=== PATIENT | male | born 1950 | race Caucasian/White ===

== ENCOUNTER → 2016-10-25 | Day surgery (SDC) | payer MEDICARE, BC, OTHER ==
[~2016-10-25] MED LIST: AMBI12.5 PO; AMPH1TAB83 PO; ASPI325T PO; BENA25TA3 PO; BUPIVACAINE HCL PF 0.75% 30 ML VIAL ONE; CELE400C PO; CIAL20TA PO; CLIN1CAP6 PO; DOXA1TAB36 PO; FENO48TA PO; FURO20TA PO; LORA-474 PO; MELA1TAB18 PO; METO2.5T PO; METO25TA3 PO; MILK1CAP PO; MIRA33504 PO; NALO1TAB2 PO; OXYC-426 PO; OXYC30TA62 PO; POTA-163 PO; PRIM50TA5 PO; PROPOFOL 200 MG/20 ML AMP IV ONE; PROT40TA PO; ROSU10 PO; TEST200I13 IM; TIRO112C PO; TRIAMCINOLONE ACETONIDE 40 MG/ML VIAL I-ARTICULR ONE; VIAG100T PO; ZYRT10CA PO
--- NOTE | 2016-10-27 12:43 | M6 ---
cc: PRANAV LO M.D. DATE 10/25/2016 DATE OF 1950 PROCEDURE Fluoroscopically guided injection bilateral lumbar facet joints (bilateral L3-4, L4-5 and L5-S1 facet joints) PROCEDURE NOTE History and physical was completed and signed. Consent was signed. Procedure site was marked. Medications were listed and reconciled. Pain score was recorded. Allergies were noted. Time out was taken. Fluoroscopy time was recorded where applicable. Sedation was administered or directed by Dr. Lo. The patient was given oxygen. The patient was monitored by a registered nurse. Total procedure time was greater than 15 minutes. IV was started, blood pressure cuff, pulse oximeter and EKG were applied. The patient was placed in the prone position on a Ghassan table sedated with small amounts of propofol titrated to effect. Vital signs were monitored and remained stable throughout the procedure. The lumbar area was prepped with alcohol and 10% Betadine solution and draped with sterile drapes. Fluoroscopy was used in a Giovanni dog view to clearly visualize the bilateral lumbar facet joints at L3-4, L4-5 and L5-S1. Separate sterile 3-1/2-inch 25-gauge spinal needles were advanced into these joints under fluoroscopic guidance. There was negative aspiration for blood or any other type of fluid. At each location, the patient was given 1 mL of Marcaine 0.75% which contained 10 mg of Kenalog. Following the procedure, the patient was taken to the recovery room with stable vital signs neurologically intact. WMD ISSAC Burt/JAYNE /9:34 AM /12:30 PM
== END | disposition home or self-care (01) ==
LOC: PHSDC 07:28
PROVIDERS: ATTEND Pain Medicine Interventional Pain Medicine
DX: M54.5 Low back pain (principal)
CPT/HCPCS: 64493; 64494; 64495; 99152; J3301

== ENCOUNTER → 2016-11-19 | Day surgery (SDC) | payer MEDICARE, BC, OTHER ==
[~2016-11-19] MED LIST changes: +CYANOCOBALAMIN 1000 MCG/ML VIAL ONE; +LIDOCAINE HCL 1% 30 ML VIAL NERV BLOCK ONE; -OXYC-426 PO; +SODIUM CHLORIDE 0.9% 10 ML VIAL ONE; -TRIAMCINOLONE ACETONIDE 40 MG/ML VIAL I-ARTICULR ONE; +TRIAMCINOLONE ACETONIDE 40 MG/ML VIAL NERV BLOCK ONE; +methylPREDNISolone ACETATE 80 MG/ML VIAL ONE
--- NOTE | 2016-11-24 13:42 | M6 ---
cc: PRANAV LO M.D. DATE 11/19/2016 DATE OF 1950 PROCEDURE Fluoroscopically guided L5-S1 interlaminar epidural steroid injection. History and physical was completed and signed. Consent was signed. Procedure site was marked. Medications were listed and reconciled. Pain score was recorded. Allergies were noted. Time out was taken. Fluoroscopy time was recorded where applicable. Sedation was administered or directed by Dr. Lo. The patient was given oxygen. The patient was monitored by a registered nurse. Total procedure time was greater than 15 minutes. PROCEDURE NOTE IV was started. Blood pressure cuff, pulse oximeter and EKG were applied. The patient was placed in the prone position on a Ghassan table, sedated with small amounts of propofol titrated to effect. Vital signs were monitored and remained stable throughout the procedure. The lumbar area was prepped with alcohol and 10% Betadine solution and draped with sterile drapes. Fluoroscopy was used to visualize the L5-S1 interlaminar space. The skin was infiltrated with 1% Xylocaine using a 27-gauge needle, a 3-1/2-inch, 18-gauge Giron needle was advanced using fluoroscopic guidance and the [id number]-be-[id number] technique into the epidural space at L5-S1 slightly to the left of midline. There was negative aspiration for blood or any other type of fluid and the patient was given 10 mL of 0.5% Xylocaine and 80 mg of Depo-Medrol. Following this the patient was taken to the recovery room with stable vital signs, neurologically intact. W. MD ISSAC Burns/BRYCE /9:11 AM /1:33 PM
== END | disposition home or self-care (01) ==
LOC: PHSDC 06:52
PROVIDERS: ATTEND Pain Medicine Interventional Pain Medicine
DX: M54.5 Low back pain (principal)
CPT/HCPCS: 62323; 99152; J1040; J3301; J3420